=== PATIENT | male | born 1980 | race Caucasian/White ===

== ENCOUNTER 2019-06-12 19:28 | Emergency (ER) | payer OTHER ==
[2019-06-12 19:43] VITALS: BP 162/82
== END 2019-06-12 20:54 | disposition left against medical advice (07) ==
LOC: ED 19:28
DX: Z53.21 Procedure and treatment not carried out due to patient leaving prior to being seen by health care provider (principal)

== ENCOUNTER 2020-05-21 18:54 | Outpatient (CLI) | payer OTHER ==
--- NOTE | 2020-05-21 18:57 | XRAY Report ---
PROCEDURE: Ribs w/PA Chest RT INDICATIONS: RT FRONTAL CHEST WALL PAIN, INITIAL ENCOUNTER TECHNIQUE: 4 views of the left and right ribs were acquired, along with a single view chest. COMPARISON: None. FINDINGS: Surgical changes and devices: None. Bones and chest wall: No fractures or dislocations. No suspicious bony lesions. Overlying soft tis sues appear unremarkable. Lungs and pleura: No pleural effusions or pneumothorax. Lungs appear clear. Mediastinum: Mediastinal contours appear normal. Heart size is normal. IMPRESSION: No displaced rib fractures. Reviewed by: Johnna Drummond MD on 05/21/2020 6:56 PM PDT Approved by: Johnna Drummond MD on 05/21/2020 6:56 PM PDT Station ID: [id number]
== END 2020-05-21 23:59 | disposition home or self-care (01) ==
LOC: DI.S 18:54
PROVIDERS: ATTEND Emergency Medicine
DX: S29.011A Strain of muscle and tendon of front wall of thorax, initial encounter (principal)

== ENCOUNTER 2023-02-10 14:03 | Emergency (ER) | payer OTHER ==
[2023-02-10 14:36] LABS: BASOPHILS # (AUTO) 0.1 10^3/uL (0.0-0.1); BASOPHILS % (AUTO) 0.6 %; EOSINOPHILS # (AUTO) 0.1 10^3/uL (0.0-0.7); EOSINOPHILS % (AUTO) 1.4 %; HCT - HEMATOCRIT 45.5 % (42.0-52.0); HGB - HEMOGLOBIN 14.9 g/dL (14.0-18.0); LYMPHOCYTES # (AUTO) 1.2 10^3/uL (1.5-3.5); LYMPHOCYTES % (AUTO) 14.6 %; MEAN CORPUSCULAR HEMOGLOBIN 29.2 pg (27.0-31.0); MEAN CORPUSCULAR HGB CONC 32.7 g/dL (32.0-36.0); MEAN PLATELET VOLUME 9.7 fL (7.4-11.4); MONOCYTES # (AUTO) 0.8 10^3/uL (0.0-1.0); NEUTROPHILS # (AUTO) 5.8 10^3/uL (1.5-6.6); PLT - PLATELET COUNT 242 10^3/uL (130-450); RED BLOOD COUNT 5.11 10^6/uL (4.70-6.10); RED CELL DISTRIBUTION WIDTH 13.1 % (12.0-15.0); WHITE BLOOD COUNT 7.9 x10^3/uL (4.8-10.8)
--- NOTE | 2023-02-10 14:48 | ED Physician Documentation ---
PD HPI CHEST PAIN - Stated complaint Stated Complaint: CHEST PX/LT ARM PN/DIZZY - Chief complaint Chief Complaint: Cardiac - History obtained from History obtained from: Patient - History of Present Illness Timing - onset: Today Timing - onset during: Light activity Timing - duration: Minutes (5) Timing - details: Abrupt onset, Now resolved, Intermittant Quality: Tightness Location: Left chest Radiation: Left upper extremity Associated symptoms: No: Shortness of air, Diaphoresis, Nausea, Feeling faint / dizzy Similar symptoms before: No diagnosis (he has had brief feelings of tightness/discomfort in chest last few minutes at a time for months. every few days or so on average but not pattterned. Today with discomfort to left shoulder/arm. Has not occurred with activity (like going up stairs/ladder) but usually when rested or light activity.) Recently seen: Not recently seen Review of Systems Constitutional: denies: Fever, Chills Nose: denies: Rhinorrhea / runny nose, Congestion Throat: denies: Sore throat Cardiac: denies: Pedal edema, Calf pain Respiratory: denies: Dyspnea, Cough, Wheezing GI: denies: Abdominal Pain, Nausea, Vomiting, Diarrhea Musculoskeletal: denies: Extremity swelling PD PAST MEDICAL HISTORY - Past Medical History Cardiovascular: Other (no history of irregular heart beats.) Respiratory: None Endocrine/Autoimmune: None - Past Surgical History Past Surgical History: Yes Ortho: ACL reconstruction - Present Medications Home Medications: Ambulatory Orders Medication Instructions Recorded Confirmed Apixaban [Eliquis] 2.5 mg PO BID 02/10/23 02/10/23 - Allergies Allergies/Adverse Reactions: Allergies Allergy/AdvReac Type Severity Reaction Status Date / Time No Known Drug Allergies Allergy Verified 02/10/23 14:12 - Social History Does the pt smoke?: No Smoking Status: Never smoker Does the pt drink ETOH?: Yes Does the pt have substance abuse?: No - Immunizations Immunizations are current?: Yes - POLST Patient has POLST: No PD ED PE NORMAL - Vitals Vital signs reviewed: Yes - General General: Alert and oriented X 3, No acute distress, Well developed/nourished - HEENT HEENT: Pharynx benign - Neck Neck: Supple, no meningeal sign, No adenopathy - Cardiac Cardiac: RRR, No murmur - Respiratory Respiratory: Clear bilaterally - Abdomen Abdomen: Soft, Non tender - Derm Derm: Normal color, Warm and dry - Extremities Extremities: No edema, No calf tenderness / cord - Neuro Neuro: Alert and oriented X 3, No motor deficit, Normal speech Results - Vitals Vitals: Vital Signs - 24 hr 02/10/23 02/10/23 02/10/23 14:13 14:59 16:30 Temperature 36.8 C Heart Rate 81 84 77 Respiratory 16 18 20 Rate Blood Pressure 164/77 H 146/81 H 130/83 H O2 Saturation 98 99 98 Oxygen O2 Source Room air - EKG (time done) 14:12 EKG releavant findings:: EKG personally interpreted by author of this note. Relevant findings are: Rate: Rate (enter#) (81) Rhythm: NSR [place]: Normal Intervals: Normal CA QRS: Normal Ischemia: Normal ST segments. No: ST elevation c/w ischemia, ST depression - Labs Labs: Laboratory Tests 02/10/23 02/10/23 02/10/23 14:32 14:32 14:32 WBC 7.9 RBC 5.11 Hgb 14.9 Hct 45.5 MCV 89.0 MCH 29.2 MCHC 32.7 RDW 13.1 Plt Count 242 MPV 9.7 Neut # (Auto) 5.8 Lymph # (Auto) 1.2 L [place] # (Auto) 0.8 Eos # (Auto) 0.1 Baso # (Auto) 0.1 Absolute Nucleated RBC 0.00 Nucleated RBC % 0.0 Sodium 140 Potassium 4.1 Chloride 104 Carbon Dioxide 28 Anion Gap 8.0 BUN 14 Creatinine 0.9 Estimated GFR (MDRD) 93 Glucose 106 H Calcium 9.1 Total Bilirubin 0.4 AST 22 ALT 24 Alkaline Phosphatase 45 Troponin I High Sens 4.0 B-Natriuretic Peptide Total Protein 7.8 Albumin 4.1 Globulin 3.7 Albumin/Globulin Ratio 1.1 Lipase 37 02/10/23 14:32 WBC RBC Hgb Hct MCV MCH MCHC RDW Plt Count MPV Neut # (Auto) Lymph # (Auto) [place] # (Auto) Eos # (Auto) Baso # (Auto) Absolute Nucleated RBC Nucleated RBC % Sodium Potassium Chloride Carbon Dioxide Anion Gap BUN Creatinine Estimated GFR (MDRD) Glucose Calcium Total Bilirubin AST ALT Alkaline Phosphatase Troponin I High Sens B-Natriuretic Peptide 6 Total Protein Albumin Globulin Albumin/Globulin Ratio Lipase - Rads (name of study) chest xray Relevant Findings:: Prelim report reviewed, EMP independent interpretation of test (no acute process), See rad report PD Medical Decision Making - ED course Complexity details: reviewed results (Has normal chest xray and ECG. Troponin and BNP are in normal range, excluding acute myocardsial injury nor signs of heart failure/heart strain. ), considered differential (intermittent nonexertional episodes of chest tightness. has not noted heart rate fast per se. nonpleuritic. PERC negative. ), d/w patient ED course: Does not sound anginal nor pleuritic. tests now are normal. consider GERD episodes But also need to consider intermittent arrhythmia such as SVt/atrial fib. HOLTER/Ziopatch should be considered. Departure - Departure Disposition: 01 Home, Self Care Clinical Impression: Chest discomfort Condition: Stable Record reviewed to determine appropriate education?: Yes Instructions: ED Chest Pain Atypical Unkn Cause Comments: Your EKG, chest x-ray, blood tests including troponin and BNP are normal here. No signs of heart muscle injury, heart failure or strain, pneumonia, fluid around the lungs. Given the episodic symptoms you are having, we will 1 might consider an irregular heartbeat episodically. Follow-up with your primary care this week as planned. Discussed with them the idea of a heart rhythm monitor (Holter, Zio patch, others) to evaluate whether there is intermittent irregular heart rhythm. Other consideration would be conditions such as reflux which can cause symptoms like this episodically. I would consider acid reducing medicine such as famotidine 20 mg daily for the next few weeks and see if that helps. Continue antacid such as Maalox or M [place] periodically if needed. This would likely be preferable over Pepto- Bismol as Pepto-Bismol is an anti-inflammatory not really an antacid. Regular activity and diet. Discharge Date/Time: 02/10/23 16:30
[2023-02-10 14:58] LABS: ALBUMIN 4.1 g/dL (3.2-5.5); ALBUMIN/GLOBULIN RATIO 1.1 (1.0-2.2); BILIRUBIN,TOTAL 0.4 mg/dL (0.2-1.0); CALCIUM 9.1 mg/dL (8.5-10.3); CREATININE 0.9 mg/dL (0.6-1.2); POTASSIUM 4.1 mmol/L (3.5-5.0); TOTAL PROTEIN 7.8 g/dL (6.7-8.2)
--- NOTE | 2023-02-10 15:05 | XRAY Report ---
PROCEDURE: Chest 1 View X-Ray INDICATIONS: Chest pain TECHNIQUE: One view of the chest was acquired. COMPARISON: 05/21/2020 FINDINGS: Surgical changes and devices: None. Lungs and pleura: No pleural effusions or pneumothorax. Lungs are clear. Mediastinum: Mediastinal contours appear normal. Heart size is normal. Bones and chest wall: No suspicious bony lesions. Overlying soft tissues appear unremarkable. IMPRESSION: Portable chest study within normal limits. Reviewed by: Ronnell Nagy MD on 02/10/2023 2:03 PM [facility]I Approved by: Ronnell Nagy MD on 02/10/2023 2:03 PM MALI Station ID: [id number]
[2023-02-10] MEDS ORDERED: FAMOTIDINE 20 MG TABLET PO STA (16:01)
[2023-02-10 16:30] VITALS: BP 130/83
== END 2023-02-10 16:30 | disposition home or self-care (01) ==
LOC: ED 14:03
DX: R07.89 Other chest pain (principal)
CPT/HCPCS: 36415; 71045; 80053; 83690; 83880; 84484; 85025; 93005; 99283; 99284; A9270

== ENCOUNTER 2023-03-27 23:36 | Outpatient (CLI) | payer OTHER | END 2023-03-27 23:59 | disposition short-term general hospital (02) | LOC: EMS 23:36 | DX: R00.2 Palpitations (principal); R06.02 Shortness of breath; R42 Dizziness and giddiness; R61 Generalized hyperhidrosis; I48.91 Unspecified atrial fibrillation; Z79.01 Long term (current) use of anticoagulants | CPT/HCPCS: A0425; A0427 ==

== ENCOUNTER 2023-03-28 17:07 | Outpatient (CLI) | payer OTHER | END 2023-03-28 23:59 | disposition short-term general hospital (02) | LOC: EMS 17:07 | DX: R07.89 Other chest pain (principal); R42 Dizziness and giddiness; R61 Generalized hyperhidrosis | CPT/HCPCS: A0425; A0427 ==